=== PATIENT | female | born 1965 | race Caucasian/White ===

== ENCOUNTER 2025-02-21 08:13 | Emergency (ER) | payer BC, SELFPAY ==
[2025-02-21 08:19] VITALS: BP 128/69; PULSE 81; RESP 16; TEMP 36.4; O2SAT 98; BMI 18.9
--- NOTE | 2025-02-21 08:38 | ED.DENTAL ---
HPI - Dental/Oral General Chief complaint: Dental/Oral Stated complaint: tooth ache Time Seen by Provider: 02/21/25 08:27 Source: patient Mode of arrival: ambulatory Limitations: no limitations History of Present Illness ED Provider: DR. Savage HPI Narrative: 59-year-old female came in for evaluation of right side facial swelling and dental pain X4 days. Patient just moved recently to the area and is waiting to have dental insurance to go to her dentist patient is aware that she is been having diffuse dental decay and needed to be extracted and having denture instead. No fever, chills. Related Data Previous Rx's ?Medication ?Instructions ?Recorded amoxicillin 875 mg-potassium 1 tab PO BID #20 tabs 02/21/25 clavulanate 125 mg tablet Allergies Allergy/AdvReac Type Severity Reaction Status Date / Time vancomycin Allergy Unknown Verified 02/21/25 08:23 Review of Systems Review of Systems: All other systems are reviewed and are negative Constitutional: Reports as per HPI and Reports no additional constitutional complaints Eyes: Reports as per HPI and Reports no additional eye complaints Reports system reviewed and no additional complaints, except as documented Cardiovascular: Reports as per HPI and Reports no additional cardiovascular complaints Respiratory: Reports as per HPI and Reports no additional respiratory complaints Gastrointestinal: Reports as per HPI and Reports no additional gastrointestinal complaints Genitourinary: Reports no additional female genitourinary complaints Musculoskeletal: Reports no additional musculoskeletal complaints Skin/Breast: Reports system reviewed and no additional complaints, except as docu Psychiatric: Reports no additional psychiatric complaints Endocrine: Reports no additional endocrine complaints Hematologic/Lymphatic: Reports no additional hematologic/lymphatic complaints Allergic/Immunologic: Reports no additional allergic/immunologic complaints Reports system reviewed and no additional complaints, except as documented and Reports Abnormal speech present [facility] Social History Social History Advance Directives: No Advance Directives Information Provided: Yes Do you have a plan to hurt others: No Plan Physical Exam Vital Signs: Vital Signs: Last Vital Signs Temp 97.5 F 02/21/25 08:19 Pulse 81 02/21/25 08:19 Resp 16 02/21/25 08:19 BP 128/69 02/21/25 08:19 Pulse Ox 98 02/21/25 08:19 O2 Del Method Room Air 02/21/25 08:19 BMI result Body Mass Index 18.9 Vital signs have been reviewed and appear to be correct. Blood pressure elevated. Heart rate normal. Respiratory rate normal. Temperature normal. Oxygen saturation normal. Appearance: Alert. Oriented X3. No acute distress. Head: Normal external exam. Normocephalic. Atraumatic. No Bee signs noted. No raccoon eyes noted . Dental exam: Diffuse widespread decay,, dental infection at Right 1st molar and premolar, gum tenderness and swelling surrounding the 2 teeth, possible small dental abscess. Eyes: PERRLA. EOMI. Conjunctiva and sclera normal. Eyelids normal. ENT: TM's Normal. Pharynx normal. Uvula midline. Moist mucous membranes. No trismus noted. No drooling noted. No muffled voice noted. Neck: Normal inspection. Neck supple. FROM. No adenopathy. Thyroid Normal. No meningeal signs. No neck mass noted. CVS: Normal heart rate and rhythm. Heart sound normal. No murmurs noted. Pulses normal throughout. Respiratory: No respiratory distress. Painless inspiration. Breath sounds normal. No wheezes/rales/rhonchi noted. Chest nontender. No accessory muscle usage noted or decreased air movement noted. Abdomen: Soft and nontender. Bowel sounds normal in all 4 quadrants. No distention noted. No organomegaly noted. No visible injury noted. Back: No CVA tenderness. Full range of motion noted. Skin: Skin warm and dry. Normal skin color. Normal skin turgor. No rashes/lesions/lacerations noted. Extremities: No lower extremity edema. Extremities exhibit normal range of motion. Extremities nontender. Neuro: Oriented X 3. Cranial nerve exam: II-XII are grossly intact No motor deficit. No sensory deficit. Reflexes normal. Course Reevaluation(s) Reevaluation #1: dental infection, possible small dental abscess. Patient is adamantly refusing abscess I and D even after I explained to her to use local anesthesia and nerve block, patient stated that anesthesia never work for her and had traumatic memories from previous dental workup, patient will take the antibiotic only and declined the I and D. Time: 08:47 Medical Decision Making Differential Diagnosis Differential Diagnoses: The differential diagnosis associated with the presentation includes ( facial cellulitis, dental abscess, dental infection.) Admission/Observation Consideration of admission/observation: Escalation of care including admission/observation considered Discharge Plan Discharge Clinical Impression: Dental caries, Dental abscess Patient Disposition: Home, Self-Care Instructions: Dental Abscess (ED) Additional Instructions: see your dentist, return if increased swelling or worsening of the pain, take ibuprofen 200 mg every 6 hours if needed for pain. Prescriptions: New amoxicillin-pot clavulanate 875-125 mg tablet 1 tab PO BID Qty: 20 0RF Print Language: Armenian
[2025-02-21 08:56] VITALS: BP 128/69; PULSE 81; RESP 16; TEMP 36.4; O2SAT 98
== END 2025-02-21 08:57 | disposition home or self-care (01) ==
PROVIDERS: Emergency Provider Emergency Medicine
DX: K04.7 Periapical abscess without sinus (principal); K02.9 Dental caries, unspecified
CPT/HCPCS: 99283